=== PATIENT | female | born 1970 | race American Indian/Alaskan Native ===

== ENCOUNTER 2021-09-05 08:43 | Emergency (ER) | payer SELFPAY ==
[2021-09-05 09:05] VITALS: BP 106/62
[2021-09-05 10:59] LABS: Hematocrit 41.4 % (30.3-42.9); Hemoglobin 13.5 gm/dl (10.1-14.3); Mean Corpuscular HGB Conc 33 % (30-34); Mean Corpuscular Volume 79 fl (79-97); Platelet Count 217 K/mm3 (140-440); Red Blood Count 5.23 M/mm3 (3.65-5.03); Red Cell Distribution Width 16.8 % (13.2-15.2)
[2021-09-05 11:09] LABS: INR 0.97 (0.87-1.13)
[2021-09-05 11:52] LABS: Alanine Aminotransferase 10 units/L (7-56); Albumin 4.2 g/dL (3.9-5); BUN/Creatinine Ratio 16; Blood Urea Nitrogen 14 mg/dL (7-17); Calcium 9.4 mg/dL (8.4-10.2); Hemolysis Index 26
[2021-09-05 15:05] LABS: Mucus,Urine 3+ /HPF
[2021-09-05 15:24] LABS: Bilirubin,Urine NEG (Negative); Blood,Urine MOD (Negative); Color,Urine Yellow (Yellow); Urobilinogen,Urine < 2.0 mg/dL (<2.0)
--- NOTE | 2021-09-05 15:48 | Emergency Department Report ---
ED Abdominal Pain HPI - General Chief Complaint: Abdominal Pain Stated Complaint: RT SIDE PAIN Time Seen by Provider: 09/05/21 13:35 Source: patient Mode of arrival: Ambulatory Limitations: No Limitations - History of Present Illness Initial Comments: 50-year-old black female with a past medical history of hypertension presents to the emergency department for evaluation of right lower quadrant pain that started on . She states that pain is 9 out of 10 and consistent with the type of pain that she has been she usually starts her menstrual cycle, but this time pain is significantly worse. She states that she was seen at [facility] for same on , prescribed ibuprofen for pain, but states that pain is not improved with ibuprofen. She states that she also has some nausea but denies vomiting, fever, dysuria, and vaginal discharge. She also complains of pain to her right thigh since that is worse with a mbulating. She denies numbness tingling, chest pain, shortness of breath, and hemoptysis. MD Complaint: abdominal pain -: Gradual, days(s) (4) Radiation: none Migration to: no migration Severity: severe Severity scale (0 -10): 9 Quality: cramping Consistency: intermittent Worsens With: movement Associated Symptoms: nausea. denies: vomiting, diarrhea, fever, chills, dysuria, hematemesis, hematochezia, melena, hematuria, anorexia, syncope Treatments Prior to Arrival: NSAIDs - Related Data LMP Date: 09/02/21 Previous Rx's Medication Instructions Recorded Last Taken Type Ketorolac [Toradol] 10 mg PO Q6H PRN #12 tab 09/05/21 Unknown Rx Tramadol HCl/Acetaminophen 1 each PO Q8HR PRN #12 tab 09/05/21 Unknown Rx [Ultracet Tablet] ED Review of Systems ROS: Stated complaint: RT SIDE PAIN Other details as noted in HPI Comment: All other systems reviewed and negative Constitutional: denies: chills, fever Eyes: denies: vision change ENT: denies: congestion Respiratory: denies: cough, shortness of breath, SOB with exertion, SOB at rest, stridor, wheezing Cardiovascular: denies: chest pain, palpitations, dyspnea on exertion, orthopnea, edema, syncope, paroxysmal nocturnal dyspnea Gastrointestinal: abdominal pain, nausea. denies: vomiting, diarrhea, hematemesis, melena, hematochezia Genitourinary: denies: urgency, dysuria, frequency, hematuria, discharge Musculoskeletal: denies: back pain Skin: denies: rash, lesions Neurological: denies: headache, weakness ED Past Medical Hx - Past Medical History Hx Hypertension: Yes (noncompliant with meds) - Surgical History Past Surgical History?: No - Social History Smoking Status: Never Smoker - Medications Home Medications: Home Medications Medication Instructions Recorded Confirmed Last Taken Type Ketorolac [Toradol] 10 mg PO Q6H PRN #12 tab 09/05/21 Unknown Rx Tramadol HCl/Acetaminophen 1 each PO Q8HR PRN #12 tab 09/05/21 Unknown Rx [Ultracet Tablet] ED Physical Exam - General Limitations: No Limitations General appearance: alert - Head Head exam: Present: atraumatic, normocephalic - Eye Eye exam: Present: normal appearance. Absent: conjunctival injection - Neck Neck exam: Present: normal inspection, full ROM. Absent: tenderness, lymphaden opathy - Respiratory Respiratory exam: Present: normal lung sounds bilaterally. Absent: respiratory distress, wheezes, rales, rhonchi, stridor, chest wall tenderness - Cardiovascular Cardiovascular Exam: Present: regular rate, normal heart sounds - GI/Abdominal GI/Abdominal exam: Present: soft, normal bowel sounds. Absent: distended, tenderness, guarding, rebound, rigid - Extremities Exam Extremities exam: Present: normal inspection, normal capillary refill. Absent: pedal edema, joint swelling, calf tenderness - Back Exam Back exam: Present: normal inspection. Absent: CVA tenderness (R), CVA te nderness (L), vertebral tenderness - Neurological Exam Neurological exam: Present: alert, oriented X3, normal gait - Psychiatric Psychiatric exam: Present: normal affect, normal mood - Skin Skin exam: Present: warm, dry, intact, normal color ED Course Vital Signs 09/05/21 08:57 Temperature 98.7 F Pulse Rate 93 H Respiratory 14 Rate Blood Pressure 106/62 O2 Sat by Pulse 98 Oximetry ED Medical Decision Making - Lab Data Result diagrams: 09/05/21 09:42 09/05/21 09:42 - Medical Decision Making 50-year-old black female with a past medical history of hypertension presents to the emergency department for evaluation of right lower quadrant pain that started on . She states that pain is 9 out of 10 and consistent with the type of pain that she has been she usually starts her menstrual cycle, but this time pain is significantly worse. She states that she was seen at [facility] for same on , prescribed ibuprofen for pain, but states that pain is not improved with ibuprofen. She states that she also has some nausea but denies vomiting, fever, dysuria, and vaginal discharge. She also complains of pain to her right thigh since that is worse with ambulating. She denies numbness tingling, chest pain, shortness of breath, and hemoptysis. No gross abnormalities noted on labs, urine or exam. Patient will be discharged home with Ultracet and Toradol to use as needed for pain. She is advised to take medications as prescribed and follow-up with her primary care provider or [facility] if no improvement or worsening symptoms. She verbalizes understanding of and agreement with plan of care. Critical care attestation.: If time is entered above; I have spent that time in minutes in the direct care of this critically ill patient, excluding procedure time. ED Disposition Clinical Impression: Right thigh pain Abdominal pain Qualifiers: Abdominal location: right lower quadrant Qualified Code(s): R10.31 - Right lower quadrant pain Disposition: 01 HOME / SELF CARE / HOMELESS Is pt being admited?: No Does the pt Need Aspirin: No Condition: Stable Instructions: How to Use Cold Therapy, [id number], Abdominal Pain, Adult, [id number], Abdominal Pain (ED) Additional Instructions: Take medications as prescribed. Follow-up with primary care provider if no improvement. Return to the emergency department as needed. Prescriptions: Ketorolac [Toradol] 10 mg PO Q6H PRN #12 tab PRN Reason: Pain Tramadol HCl/Acetaminophen [Ultracet Tablet] 1 each PO Q8HR PRN #12 tab PRN Reason: Pain , Severe (7-10) Referrals: ERI QUAN MD [Primary Care Provider] - 3-5 Days Forms: Work/School Release Form(ED) Time of Disposition: 15:48
== END 2021-09-05 16:00 | disposition home or self-care (01) ==
LOC: ED 08:43
DX: M79.651 Pain in right thigh (principal); R10.31 Right lower quadrant pain; I10 Essential (primary) hypertension; Z79.899 Other long term (current) drug therapy
CPT/HCPCS: 36415; 80053; 81001; 85027; 85610; 99283